=== PATIENT | female | born 1960 | race Caucasian/White ===

== ENCOUNTER 2025-07-31 11:59 | Day surgery (SDC) | payer OTHER ==
[2025-07-31] MEDS: ZOLEDRONIC ACID/MAN/WATER 5 MG/100 ML INFUS..BTL IVPB ONE (12:26)
[2025-07-31 15:34] VITALS: BP 108/70; PULSE 70; RESP 18; TEMP 98.2
== END 2025-07-31 15:34 | disposition home or self-care (01) ==
LOC: FINFUSION 11:59 → FM/S 12:01 → FINFUSION 15:34
PROVIDERS: ATTEND Family Medicine
PROC: 3E033GC Introduction of Other Therapeutic Substance into Peripheral Vein, Percutaneous Approach (ICD-10-PCS; principal; 2025-07-31)
DX: M81.0 Age-related osteoporosis without current pathological fracture (principal)
CPT/HCPCS: 96365; J3489